=== PATIENT | male | born 1955 | race Two or more races ===

== ENCOUNTER 2017-04-11 11:19 | Inpatient (IN) | payer MEDICARE, MEDICAID ==
[~2017-04-11] VITALS: Ht 154.9 cm; Wt 78.5 kg
[~2017-04-11 11:19] MED LIST: ALLO300T2 PO; AML5T PO; ASPI81CH49 PO; CLO01T GT; COLC1TAB3 PO; ENAL-3 PO; METO25TA5 PO; SIMV-8 PO
[2017-04-11 12:15] LABS: Basophils # (auto) 0.1 uL; Lymphocytes # (auto) 2.2 uL; Monocytes # (auto) 0.7 uL; White Blood Cell 8.6 10^3/uL (4.4-10.8)
[2017-04-11 12:16] LABS: Basophils % (auto) 1.1 % (0.0-2.0); Eosinophils # (auto) 0.2 uL; Eosinophils % (auto) 2.9 % (0.0-7.0); Hematocrit 52.6 % (41.0-53.0); Lymphocytes % (auto) 25.9 % (10.0-50.0); Mean Corpuscular Hemoglobin 31.8 pg (28.0-32.0); Mean Corpuscular Hgb Conc. 34.3 g/dL (32.0-36.0); Mean Corpuscular Volume 92.7 fL (80.0-100.0); Monocytes % (auto) 8.2 % (0.0-12.0); Neutrophils # (auto) 5.3 uL; Neutrophils % (auto) 61.9 % (37.0-80.0); Nucleated Red Blood Cells % 0.2 %; Platelet Count (auto) 230 10^3/uL (140-450); Red Blood Cells 5.68 10^6/uL (4.5-5.90); Red Cell Distribution Width 14.6 % (11.8-14.3)
[2017-04-11 13:09] LABS: Albumin 3.9 g/dL (3.4-5.0); BUN/Creatinine Ratio 14.6; Bilirubin, Total 0.7 mg/dL (0.2-1.0); Calcium 8.7 mg/dL (8.5-10.1); Magnesium 2.4 mg/dL (1.6-2.6); Potassium 4.2 mmol/L (3.5-5.1); Total Protein 7.6 g/dL (6.4-8.2)
[2017-04-11 19:04] LABS: Urine Bacteria NONE SEEN /hpf (None Seen); Urine Blood Negative /uL (Negative); Urine Specific Gravity 1.017 (1.001-1.035); Urine WBC 2 /hpf (0 - 3)
[2017-04-11] MEDS ORDERED: ONDANSETRON HCL 4 MG/2 ML VIAL IV PRN (20:45)
[2017-04-11] MEDS ORDERED: ASPirin 81 mg TAB PO ONE (20:45)
[2017-04-11] MEDS ORDERED: MORPHINE SULFATE 4 MG/ML SYR/VIAL IV PRN (20:45)
[2017-04-11] MEDS ORDERED: HYDROcodone-ACET 5/325MG TAB PO PRN (20:45)
[2017-04-11] MEDS ORDERED: NITROGLYCERIN 0.4 MG SL TAB SL PRN (20:45)
[2017-04-11] MEDS ORDERED: ACETAMINOPHEN 325 MG TAB PO PRN (20:45)
[2017-04-11] MEDS ORDERED: ASPirin 81 mg TAB ONE (20:53)
[2017-04-11 21:45] VITALS: BP 153/93
[2017-04-11 22:00] VITALS: BP 153/93
[2017-04-11] MEDS: ATORVASTATIN 20 MG TAB PO SCH (22:23)
[2017-04-11] MEDS: FAMOTIDINE 20 MG TAB PO SCH (22:23)
[2017-04-11] MEDS: ENALAPRIL MALEATE 10 MG TAB PO SCH (22:23)
[2017-04-12] MEDS ORDERED: LISI-646 PO (04:48)
[2017-04-12] MEDS ORDERED: HYDR25TA35 PO (04:48)
[2017-04-12 04:57] VITALS: BP 124/91
[2017-04-12 05:57] LABS: Basophils # (auto) 0.1 uL; Eosinophils # (auto) 0.3 uL; Lymphocytes # (auto) 2.2 uL; Mean Corpuscular Volume 92.9 fL (80.0-100.0); Monocytes # (auto) 0.7 uL
[2017-04-12 05:59] LABS: Eosinophils % (auto) 3.6 % (0.0-7.0); Hematocrit 51.9 % (41.0-53.0); Hemoglobin 18.5 g/dL (13.5-17.5); Lymphocytes % (auto) 30.5 % (10.0-50.0); Mean Corpuscular Hemoglobin 33.1 pg (28.0-32.0); Mean Corpuscular Hgb Conc. 35.7 g/dL (32.0-36.0); Monocytes % (auto) 9.6 % (0.0-12.0); Neutrophils # (auto) 4.1 uL; Neutrophils % (auto) 55.3 % (37.0-80.0); Nucleated Red Blood Cells % 0.6 %; Platelet Count (auto) 209 10^3/uL (140-450); Red Blood Cells 5.58 10^6/uL (4.5-5.90); White Blood Cell 7.4 10^3/uL (4.4-10.8)
[2017-04-12 06:20] LABS: Potassium 4.2 mmol/L (3.5-5.1)
[2017-04-12 06:26] LABS: Albumin 3.7 g/dL (3.4-5.0); BUN/Creatinine Ratio 18.6
[2017-04-12 06:32] LABS: Bilirubin, Total 0.8 mg/dL (0.2-1.0); Total Protein 7.1 g/dL (6.4-8.2)
[2017-04-12] MEDS ORDERED: PNEUMOCOCCAL VACC POLYS 25 MCG/0.5 ML VIAL IM ONE (07:30)
[2017-04-12] MEDS ORDERED: INFLUENZA QUAD 2017-2018 0.5 ML SYRG IM ONE (07:30)
[2017-04-12 08:30] VITALS: BP 148/93
[2017-04-12] MEDS ORDERED: METOPROLOL SUCCINATE XL 50 MG TAB PO SCH (10:00)
[2017-04-12] MEDS: ENALAPRIL MALEATE 10 MG TAB PO SCH ×2 (10:25→23:05)
[2017-04-12] MEDS: ENOXAPARIN SOD 40 MG/0.4 ML SYRINGE SC SCH (10:26)
[2017-04-12] MEDS: amLODIPine BESYLATE 5 MG TAB PO SCH (10:26)
[2017-04-12] MEDS: ALLOPURINOL 300 MG TAB PO SCH (10:26)
[2017-04-12] MEDS: cloNIDine HCL 0.1 MG TAB PO SCH (10:26)
[2017-04-12] MEDS: FAMOTIDINE 20 MG TAB PO SCH ×2 (10:26→23:06)
[2017-04-12] MEDS: ASPirin 81 mg TAB PO SCH (10:27)
[2017-04-12] MEDS: COLCHICINE 0.6 MG TAB PO SCH (10:27)
[2017-04-12 13:00] VITALS: BP 126/92
[2017-04-12 17:07] VITALS: BP 121/79
[2017-04-12] MEDS: ATORVASTATIN 20 MG TAB PO SCH (23:06)
[2017-04-12 23:51] VITALS: BP 147/93
[2017-04-13 00:03] VITALS: BP 147/93
[2017-04-13 05:17] VITALS: BP 140/85
[2017-04-13] MEDS ORDERED: ADENOSINE 66 MG in GIVE UN-DILUTED 0 ML IV ONE (08:30)
[2017-04-13 08:51] VITALS: BP 178/104
[2017-04-13 09:07] VITALS: BP 150/91
[2017-04-13] MEDS ORDERED: METOPROLOL SUCCINATE XL 50 MG TAB PO SCH (10:00)
[2017-04-13] MEDS: ENOXAPARIN SOD 40 MG/0.4 ML SYRINGE SC SCH (10:00)
[2017-04-13] MEDS: FAMOTIDINE 20 MG TAB PO SCH (10:44)
[2017-04-13] MEDS: ALLOPURINOL 300 MG TAB PO SCH (10:44)
[2017-04-13] MEDS: ASPirin 81 mg TAB PO SCH (10:44)
[2017-04-13] MEDS: COLCHICINE 0.6 MG TAB PO SCH (10:45)
[2017-04-13] MEDS: ENALAPRIL MALEATE 10 MG TAB PO SCH (10:46)
[2017-04-13] MEDS: cloNIDine HCL 0.1 MG TAB PO SCH (10:46)
[2017-04-13] MEDS: amLODIPine BESYLATE 5 MG TAB PO SCH (10:48)
[2017-04-13 13:00] VITALS: BP 140/91
[2017-04-13 16:14] VITALS: BP 140/91
== END 2017-04-13 17:32 | disposition home or self-care (01) | DRG 282 ==
LOC: ER 11:19 → TELE 11:20 → TELE-CENTR 21:37
PROVIDERS: ADMIT Nurse Practitioner; ATTEND Internal Medicine
DX: I21.4 Non-ST elevation (NSTEMI) myocardial infarction (principal); I11.9 Hypertensive heart disease without heart failure; N18.3 Chronic kidney disease, stage 3 (moderate); B95.62 Methicillin resistant Staphylococcus aureus infection as the cause of diseases classified elsewhere; I25.10 Atherosclerotic heart disease of native coronary artery without angina pectoris; E78.00 Pure hypercholesterolemia, unspecified; E78.5 Hyperlipidemia, unspecified; I25.5 Ischemic cardiomyopathy; M10.9 Gout, unspecified; R00.2 Palpitations; Z95.1 Presence of aortocoronary bypass graft; Z23 Encounter for immunization; Z87.891 Personal history of nicotine dependence; Z79.899 Other long term (current) drug therapy; Z79.82 Long term (current) use of aspirin
CPT/HCPCS: 36415; 70450; 71046; 78452; 80053; 81001; 83735; 83880; 84443; 84484; 85025; 87081; 93005; 93017; 93306; 96372; J0153

== ENCOUNTER 2017-07-20 03:40 | Emergency (ER) | payer MEDICARE, MEDICAID ==
[~2017-07-20] VITALS: Ht 167.6 cm; Wt 79.4 kg
[~2017-07-20 03:40] MED LIST changes: +HYDR25TA35 PO; +LISI-646 PO
[2017-07-20 04:39] LABS: Urine WBC None Seen /hpf (0 - 3)
[2017-07-20 04:51] LABS: Urine Bacteria NONE SEEN /hpf (None Seen); Urine Blood Negative /uL (Negative); Urine Specific Gravity 1.012 (1.001-1.035)
[2017-07-20 06:52] LABS: Basophils # (auto) 0.1 uL; Eosinophils # (auto) 0.2 uL; Eosinophils % (auto) 2.4 % (0.0-7.0); Hematocrit 49.2 % (41.0-53.0); Hemoglobin 17.4 g/dL (13.5-17.5); Lymphocytes # (auto) 1.8 uL; Lymphocytes % (auto) 22.9 % (10.0-50.0); Mean Corpuscular Hemoglobin 32.7 pg (28.0-32.0); Mean Corpuscular Hgb Conc. 35.3 g/dL (32.0-36.0); Mean Corpuscular Volume 92.7 fL (80.0-100.0); Monocytes # (auto) 0.7 uL; Monocytes % (auto) 8.6 % (0.0-12.0); Neutrophils # (auto) 5.2 uL; Neutrophils % (auto) 65.1 % (37.0-80.0); Nucleated Red Blood Cells % 0.1 %; Platelet Count (auto) 226 10^3/uL (140-450); Red Blood Cells 5.31 10^6/uL (4.5-5.90)
[2017-07-20 07:05] LABS: INR 0.98 (0.9-1.15); Partial Thromboplastin Time 26.6 sec (22.64-33.71); Prothrombin Time 10.7 sec (9.37-12.3)
[2017-07-20 07:09] LABS: Albumin 4.1 g/dL (3.4-5.0); BUN/Creatinine Ratio 15.7; Magnesium 2.3 mg/dL (1.6-2.6); Potassium 4.1 mmol/L (3.5-5.1)
[2017-07-20 07:40] LABS: Total Protein 7.8 g/dL (6.4-8.2)
[2017-07-20] MEDS ORDERED: SODIUM CHLORIDE 0.9% 1,000 ML IV ONE (08:30)
[2017-07-20] MEDS ORDERED: KETOROLAC TROMETH 30 MG/ML 1ML VIAL IV ONE (08:30)
[2017-07-20 10:00] VITALS: BP 146/90
== END 2017-07-20 10:21 | disposition home or self-care (01) ==
LOC: ER 03:53
DX: R10.9 Unspecified abdominal pain (principal); I25.2 Old myocardial infarction; I10 Essential (primary) hypertension; E78.5 Hyperlipidemia, unspecified; Z95.1 Presence of aortocoronary bypass graft
CPT/HCPCS: 36415; 71046; 74176; 80053; 81001; 82150; 83690; 83735; 84484; 85025; 85610; 85730; 93005; 99285; J1885; J7030

== ENCOUNTER 2018-05-06 15:57 | Inpatient (IN) | payer MEDICARE, MEDICAID ==
[~2018-05-06] VITALS: Ht 154.9 cm; Wt 75.3 kg
[~2018-05-06 15:57] MED LIST changes: +HYDR-4296 PO; -HYDR25TA35 PO
[2018-05-06 16:52] LABS: Basophils # (auto) 0.1 uL; Basophils % (auto) 0.9 % (0.0-2.0); Eosinophils # (auto) 0.3 uL; Eosinophils % (auto) 3.9 % (0.0-7.0); Hematocrit 45.4 % (41.0-53.0); Hemoglobin 15.3 g/dL (13.5-17.5); Lymphocytes # (auto) 2.5 uL; Lymphocytes % (auto) 29.2 % (10.0-50.0); Mean Corpuscular Hemoglobin 31.1 pg (28.0-32.0); Mean Corpuscular Hgb Conc. 33.7 g/dL (32.0-36.0); Mean Corpuscular Volume 92.2 fL (80.0-100.0); Monocytes # (auto) 0.7 uL; Monocytes % (auto) 7.8 % (0.0-12.0); Neutrophils # (auto) 4.9 uL; Neutrophils % (auto) 58.2 % (37.0-80.0); Nucleated Red Blood Cells % 0.2 %; Platelet Count (auto) 285 10^3/uL (140-450); Red Blood Cells 4.92 10^6/uL (4.5-5.90); Red Cell Distribution Width 14.3 % (11.8-14.3); White Blood Cell 8.4 10^3/uL (4.4-10.8)
[2018-05-06 17:05] LABS: Alanine Aminotransferase 30 U/L (16-61); Albumin 3.9 g/dL (3.4-5.0); Anion Gap 12 (5-15); Aspartate Aminotransferase 21 U/L (15-37); BUN/Creatinine Ratio 12.2; Blood Urea Nitrogen 17 mg/dL (7-18); Calcium 8.7 mg/dL (8.5-10.1); Carbon Dioxide 22 mmol/L (21-32); Chloride 108 mmol/L (98-107); GFR African American 67 mL/min; GFR Non-African American 55 mL/min; Glucose 95 mg/dL (74-106); Potassium 3.7 mmol/L (3.5-5.1); Sodium 142 mmol/L (136-145)
[2018-05-06 17:08] LABS: Alkaline Phosphatase 96 U/L (45-117); Bilirubin, Total 0.6 mg/dL (0.2-1.0); Total Protein 7.5 g/dL (6.4-8.2)
[2018-05-06] MEDS ORDERED: ACETAMINOPHEN 500 MG TAB PO PRN (22:15)
[2018-05-06] MEDS ORDERED: TEMAZEPAM 15 MG CAP PO PRN (22:15)
[2018-05-06] MEDS ORDERED: MORPHINE SULFATE 4 MG/ML SYR/VIAL IV PRN (22:15)
[2018-05-06] MEDS ORDERED: ONDANSETRON HCL 4 MG/2 ML VIAL IV PRN (22:15)
[2018-05-06] MEDS ORDERED: NITROGLYCERIN 0.4 MG SL TAB SL PRN (22:15)
[2018-05-07 02:44] LABS: Basophils # (auto) 0.1 uL; Eosinophils # (auto) 0.3 uL; Eosinophils % (auto) 4.5 % (0.0-7.0); Hematocrit 44.5 % (41.0-53.0); Hemoglobin 14.9 g/dL (13.5-17.5); Lymphocytes # (auto) 2.3 uL; Mean Corpuscular Hemoglobin 30.9 pg (28.0-32.0); Mean Corpuscular Hgb Conc. 33.4 g/dL (32.0-36.0); Mean Corpuscular Volume 92.5 fL (80.0-100.0); Monocytes # (auto) 0.8 uL; Monocytes % (auto) 10.6 % (0.0-12.0); Neutrophils % (auto) 52.9 % (37.0-80.0); Nucleated Red Blood Cells % 0.1 %; Platelet Count (auto) 241 10^3/uL (140-450); Red Blood Cells 4.81 10^6/uL (4.5-5.90); Red Cell Distribution Width 14.2 % (11.8-14.3); White Blood Cell 7.5 10^3/uL (4.4-10.8)
[2018-05-07 03:02] LABS: BUN/Creatinine Ratio 17.8; Calcium 8.8 mg/dL (8.5-10.1); Potassium 3.8 mmol/L (3.5-5.1)
[2018-05-07 07:39] LABS: Urine Bacteria NONE SEEN /hpf (None Seen); Urine Blood Negative /uL (Negative); Urine Sperm PRESENT /hpf (None Seen); Urine WBC 1 /hpf (0 - 3)
[2018-05-07] MEDS ORDERED: ASPirin-EC 81 mg tab PO SCH (10:00)
[2018-05-07] MEDS ORDERED: hydrALAZINE HCL 25 MG TAB PO SCH (10:00)
[2018-05-07] MEDS ORDERED: METOPROLOL TARTRATE 25 MG TAB PO SCH (10:00)
[2018-05-07 14:06] VITALS: BP 130/89
[2018-05-07] MEDS ORDERED: ATORVASTATIN 20 MG TAB PO SCH (22:00)
== END 2018-05-07 18:04 | disposition home or self-care (01) | DRG 302 ==
LOC: ER 15:59 → TELE 22:48
PROVIDERS: ADMIT Nurse Practitioner Family; ATTEND Internal Medicine
DX: I25.110 Atherosclerotic heart disease of native coronary artery with unstable angina pectoris (principal); N17.0 Acute kidney failure with tubular necrosis; I13.0 Hypertensive heart and chronic kidney disease with heart failure and stage 1 through stage 4 chronic kidney disease, or unspecified chronic kidney disease; M10.9 Gout, unspecified; I50.9 Heart failure, unspecified; N18.9 Chronic kidney disease, unspecified; D64.9 Anemia, unspecified; E66.9 Obesity, unspecified; E78.5 Hyperlipidemia, unspecified; F41.9 Anxiety disorder, unspecified; Z79.82 Long term (current) use of aspirin; Z79.899 Other long term (current) drug therapy; Z87.442 Personal history of urinary calculi; Z87.891 Personal history of nicotine dependence; Z95.1 Presence of aortocoronary bypass graft
CPT/HCPCS: 36415; 71046; 80048; 80053; 80061; 81001; 83735; 84484; 85025; 93005; 93306; 94761; G0378

== ENCOUNTER 2020-06-21 13:32 | Inpatient (IN) | payer MEDICARE, MEDICAID ==
[~2020-06-21] VITALS: Ht 154.9 cm; Wt 72.6 kg
[~2020-06-21 13:32] MED LIST changes: -ENAL-3 PO; +ENAL10TA13 PO
[2020-06-21] MEDS ORDERED: ASPirin 81 mg TAB PO ONE (13:45)
[2020-06-21 14:57] LABS: Basophils # (auto) 0.1 10 ^3/uL (0-0.2); Eosinophils # (auto) 0.3 10 ^3/uL (0-0.8); Hematocrit 46.4 % (41.0-53.0); Hemoglobin 15.6 g/dL (13.5-17.5); Lymphocytes # (auto) 2.7 10 ^3/uL (0.4-5.4); Lymphocytes % (auto) 30.8 % (10.0-50.0); Mean Corpuscular Hgb Conc. 33.7 g/dL (32.0-36.0); Monocytes # (auto) 0.8 10 ^3/uL (0-1.3); Monocytes % (auto) 9.7 % (0.0-12.0); Neutrophils # (auto) 4.8 10 ^3/uL (1.6-8.6); Neutrophils % (auto) 55.5 % (37.0-80.0); Nucleated Red Blood Cells % 0.1 %; Platelet Count (auto) 266 10^3/uL (140-450); Red Blood Cells 5.21 10^6/uL (4.5-5.90); Red Cell Distribution Width 15.6 % (11.8-14.3); White Blood Cell 8.7 10^3/uL (4.4-10.8)
[2020-06-21 15:06] LABS: Albumin 4.2 g/dL (3.4-5.0); Calcium 8.7 mg/dL (8.5-10.1); Potassium 4.1 mmol/L (3.5-5.1)
[2020-06-21 15:13] LABS: BUN/Creatinine Ratio 15.4; Bilirubin, Total 0.8 mg/dL (0.2-1.0); Total Protein 7.6 g/dL (6.4-8.2)
[2020-06-21] MEDS ORDERED: ACETAMINOPHEN 500 MG TAB PO PRN (16:45)
[2020-06-21] MEDS ORDERED: HYDROcodone-ACET 5/325MG TAB PO PRN (16:45)
[2020-06-21] MEDS ORDERED: MORPHINE SULF INJ 2 MG/ML SYRINGE 1ML IV PRN ×2 (16:45)
[2020-06-21] MEDS ORDERED: NITROGLYCERIN 0.4 MG SL TAB SL PRN (16:45)
[2020-06-21] MEDS ORDERED: ONDANSETRON HCL 4 MG/2 ML VIAL IV PRN (16:45)
[2020-06-21] MEDS ORDERED: DEXTROSE (50%) 50ML SYRG IV PRN (16:45)
[2020-06-21] MEDS: InsuLIN REG 1unit/0.01ml Soln (100units/ml) SC SCH ×2 (17:00→21:32)
[2020-06-21] MEDS: ACCU-CHEK COMFORT CURVE STRIP VI SCH ×2 (17:23→21:32)
[2020-06-21] MEDS: ATORVASTATIN 20 MG TAB PO SCH (21:32)
[2020-06-21] MEDS: SACUBITRIL-VALSARTAN 24mg/26mg TAB PO SCH (21:32)
[2020-06-21] MEDS: CARVEDILOL 3.125 MG TAB PO SCH (21:32)
[2020-06-21 22:00] VITALS: BP 132/66
[2020-06-21] MEDS ORDERED: HYDR50TA15 PO (22:00)
[2020-06-21] MEDS ORDERED: CARVEDILOL 3.125 MG TAB PO SCH (22:00)
[2020-06-21] MEDS ORDERED: MAGN64TA3 PO (22:00)
[2020-06-21] MEDS ORDERED: ATOR40TA52 PO (22:00)
[2020-06-21] MEDS ORDERED: SACU1TAB PO (22:00)
[2020-06-21 22:02] VITALS: BP 132/66
[2020-06-22 05:00] VITALS: BP 105/68
[2020-06-22] MEDS: ACCU-CHEK COMFORT CURVE STRIP VI SCH ×2 (06:16→11:30)
[2020-06-22] MEDS: InsuLIN REG 1unit/0.01ml Soln (100units/ml) SC SCH ×2 (06:17→11:30)
[2020-06-22 09:00] VITALS: BP 127/84
[2020-06-22] MEDS: CARVEDILOL 3.125 MG TAB PO SCH ×2 (09:38→21:26)
[2020-06-22] MEDS: amLODIPine BESYLATE 5 MG TAB PO SCH (09:39)
[2020-06-22] MEDS: FAMOTIDINE 20 MG TAB PO SCH (09:39)
[2020-06-22] MEDS: SACUBITRIL-VALSARTAN 24mg/26mg TAB PO SCH ×2 (09:39→21:27)
[2020-06-22] MEDS: ALLOPURINOL 300 MG TAB PO SCH (09:40)
[2020-06-22 13:02] VITALS: BP 136/80
[2020-06-22 16:57] VITALS: BP 133/83
[2020-06-22] MEDS: ATORVASTATIN 20 MG TAB PO SCH (21:27)
[2020-06-22] MEDS ORDERED: TEMAZEPAM 15 MG CAP PO ONE (22:30)
[2020-06-22 23:03] VITALS: BP 161/92
[2020-06-23 05:20] VITALS: BP 126/81
[2020-06-23 05:58] LABS: Basophils # (auto) 0.1 10 ^3/uL (0-0.2); Basophils % (auto) 0.9 % (0.0-2.0); Eosinophils # (auto) 0.2 10 ^3/uL (0-0.8); Eosinophils % (auto) 2.3 % (0.0-7.0); Hematocrit 47.9 % (41.0-53.0); Hemoglobin 15.8 g/dL (13.5-17.5); Lymphocytes % (auto) 28.6 % (10.0-50.0); Mean Corpuscular Hemoglobin 29.2 pg (28.0-32.0); Mean Corpuscular Hgb Conc. 33.1 g/dL (32.0-36.0); Mean Corpuscular Volume 88.2 fL (80.0-100.0); Monocytes # (auto) 0.7 10 ^3/uL (0-1.3); Monocytes % (auto) 10.2 % (0.0-12.0); Nucleated Red Blood Cells % 0.2 %; Platelet Count (auto) 236 10^3/uL (140-450); Red Blood Cells 5.43 10^6/uL (4.5-5.90); Red Cell Distribution Width 15.5 % (11.8-14.3); White Blood Cell 6.8 10^3/uL (4.4-10.8)
[2020-06-23 06:12] LABS: INR 1.02 (0.9-1.15); Partial Thromboplastin Time 25.9 sec (23.0-31.2)
[2020-06-23 06:21] LABS: Potassium 3.9 mmol/L (3.5-5.1)
[2020-06-23 06:33] LABS: Calcium 8.6 mg/dL (8.5-10.1); Magnesium 2.4 mg/dL (1.6-2.6)
[2020-06-23 08:52] VITALS: BP 129/77
[2020-06-23] MEDS: SACUBITRIL-VALSARTAN 24mg/26mg TAB PO SCH ×2 (09:27→22:42)
[2020-06-23] MEDS: CARVEDILOL 3.125 MG TAB PO SCH ×2 (09:27→22:43)
[2020-06-23] MEDS: amLODIPine BESYLATE 5 MG TAB PO SCH (09:27)
[2020-06-23] MEDS: ALLOPURINOL 300 MG TAB PO SCH (09:28)
[2020-06-23] MEDS: FAMOTIDINE 20 MG TAB PO SCH (09:28)
[2020-06-23 13:00] VITALS: BP 113/69
[2020-06-23] MEDS ORDERED: VANCOMYCIN 1GM/250ML 250 ML IV ONE ×2 (13:15→13:18)
[2020-06-23] MEDS ORDERED: LIDOCAINE 2%HCL (LOCAL ANESTH.) INJ 20ML MDV ONE (13:18)
[2020-06-23] MEDS ORDERED: VANCOMYCIN HCL 1000 MG VL ONE (13:18)
[2020-06-23] MEDS ORDERED: BACITRACIN INJ 50000 UNIT VIAL ONE (13:18)
[2020-06-23] MEDS ORDERED: MIDAZOLAM HCL 1MG/1ML-2 ML VIAL ONE (13:25)
[2020-06-23] MEDS ORDERED: fentaNYL CITRATE 100 MCG/2 ML VL ONE (13:25)
[2020-06-23] MEDS ORDERED: GELATIN 1 SPONGE SIZE 100 TOP ONE (14:41)
[2020-06-23 17:00] VITALS: BP 148/90
[2020-06-23 22:03] VITALS: BP 121/78
[2020-06-23] MEDS: VANCOMYCIN 1GM/250ML 250 ML IV SCH (22:30)
[2020-06-23] MEDS: ATORVASTATIN 20 MG TAB PO SCH (22:42)
[2020-06-24 05:00] VITALS: BP 127/89
[2020-06-24 06:34] LABS: Basophils # (auto) 0 10 ^3/uL (0-0.2); Basophils % (auto) 0.4 % (0.0-2.0); Eosinophils # (auto) 0.1 10 ^3/uL (0-0.8); Eosinophils % (auto) 1.1 % (0.0-7.0); Lymphocytes # (auto) 1.4 10 ^3/uL (0.4-5.4); Lymphocytes % (auto) 13.6 % (10.0-50.0); Mean Corpuscular Hemoglobin 29.5 pg (28.0-32.0); Mean Corpuscular Hgb Conc. 33.4 g/dL (32.0-36.0); Mean Corpuscular Volume 88.5 fL (80.0-100.0); Monocytes # (auto) 0.9 10 ^3/uL (0-1.3); Monocytes % (auto) 9.2 % (0.0-12.0); Neutrophils # (auto) 7.5 10 ^3/uL (1.6-8.6); Neutrophils % (auto) 75.7 % (37.0-80.0); Platelet Count (auto) 240 10^3/uL (140-450); Red Blood Cells 5.42 10^6/uL (4.5-5.90); Red Cell Distribution Width 15.7 % (11.8-14.3); White Blood Cell 9.9 10^3/uL (4.4-10.8)
[2020-06-24 08:40] VITALS: BP 143/94
[2020-06-24] MEDS: CARVEDILOL 3.125 MG TAB PO SCH (09:56)
[2020-06-24] MEDS: FAMOTIDINE 20 MG TAB PO SCH (09:56)
[2020-06-24] MEDS: amLODIPine BESYLATE 5 MG TAB PO SCH (09:57)
[2020-06-24] MEDS: ALLOPURINOL 300 MG TAB PO SCH (09:57)
[2020-06-24] MEDS: VANCOMYCIN 1GM/250ML 250 ML IV SCH (10:01)
[2020-06-24] MEDS: SACUBITRIL-VALSARTAN 24mg/26mg TAB PO SCH (10:02)
[2020-06-24] MEDS ORDERED: DOXY-286 PO ×2 (11:50→11:58)
[2020-06-24 12:12] VITALS: BP 143/94
[2020-06-24 12:45] VITALS: BP 118/81
== END 2020-06-24 13:27 | disposition home health service (06) | DRG 243 ==
LOC: ER 13:32 → TELE 16:44 → TELE-WESTW 20:24
PROVIDERS: ADMIT Nurse Practitioner Acute Care; ATTEND Internal Medicine
PROC: 0JH606Z Insertion of Pacemaker, Dual Chamber into Chest Subcutaneous Tissue and Fascia, Open Approach (ICD-10-PCS; principal; 2020-06-23)
PROC: 02HK3JZ Insertion of Pacemaker Lead into Right Ventricle, Percutaneous Approach (ICD-10-PCS; 2020-06-23)
PROC: 02H63JZ Insertion of Pacemaker Lead into Right Atrium, Percutaneous Approach (ICD-10-PCS; 2020-06-23)
PROC: B5171ZZ Fluoroscopy of Left Subclavian Vein using Low Osmolar Contrast (ICD-10-PCS; 2020-06-23)
DX: I44.2 Atrioventricular block, complete (principal); I50.22 Chronic systolic (congestive) heart failure; I24.9 Acute ischemic heart disease, unspecified; I49.3 Ventricular premature depolarization; I25.10 Atherosclerotic heart disease of native coronary artery without angina pectoris; E66.9 Obesity, unspecified; E78.5 Hyperlipidemia, unspecified; Z20.822 Contact with and (suspected) exposure to COVID-19; E11.9 Type 2 diabetes mellitus without complications; I11.0 Hypertensive heart disease with heart failure; M10.9 Gout, unspecified; Z79.82 Long term (current) use of aspirin; Z79.84 Long term (current) use of oral hypoglycemic drugs; Z79.899 Other long term (current) drug therapy; Z95.1 Presence of aortocoronary bypass graft; Z87.442 Personal history of urinary calculi; Z87.891 Personal history of nicotine dependence; I25.2 Old myocardial infarction; Z68.30 Body mass index [BMI] 30.0-30.9, adult
CPT/HCPCS: 36415; 71045; 71250; 80048; 80053; 80061; 82306; 82962; 83036; 83735; 83880; 84132; 84443; 84484; 85025; 85610; 85730; 86850; 86900; 86901; 87426; 93005; 93306; 99152; 99153; C1785; G0378; J2250

== ENCOUNTER 2022-05-26 09:13 | Emergency (ER) | payer MEDICARE, MEDICAID ==
[~2022-05-26] VITALS: Ht 152.4 cm; Wt 70.9 kg
[~2022-05-26 09:13] MED LIST changes: +ATOR40TA52 PO; +DOXY-286 PO; +HYDR50TA15 PO; -LISI-646 PO; +LISI20TA28 PO; +MAGN64TA3 PO; +SACU1TAB PO
[2022-05-26 09:48] VITALS: BP 164/94
[2022-05-26 10:23] LABS: Albumin 3.9 g/dL (3.4-5.0); Calcium 8.9 mg/dL (8.5-10.1); Potassium 4.4 mmol/L (3.5-5.1)
[2022-05-26 10:29] LABS: BUN/Creatinine Ratio 17.6 (10.0-20.0); Bilirubin, Total 0.9 mg/dL (0.2-1.0); Total Protein 6.8 g/dL (6.4-8.2)
[2022-05-26 10:30] LABS: Basophils # (auto) 0.1 10 ^3/uL (0-0.2); Basophils % (auto) 1.1 % (0.0-2.0); Eosinophils # (auto) 0.3 10 ^3/uL (0-0.8); Eosinophils % (auto) 4.2 % (0.0-7.0); Hematocrit 43.9 % (41.0-53.0); Hemoglobin 14.8 g/dL (13.5-17.5); Lymphocytes # (auto) 1.5 10 ^3/uL (0.4-5.4); Lymphocytes % (auto) 21.4 % (10.0-50.0); Mean Corpuscular Hgb Conc. 33.7 g/dL (32.0-36.0); Mean Corpuscular Volume 91.8 fL (80.0-100.0); Monocytes # (auto) 0.9 10 ^3/uL (0-1.3); Monocytes % (auto) 12.1 % (0.0-12.0); Neutrophils # (auto) 4.3 10 ^3/uL (1.6-8.6); Neutrophils % (auto) 61.2 % (37.0-80.0); Nucleated Red Blood Cells % 0.3 %; Red Blood Cells 4.78 10^6/uL (4.5-5.90); Red Cell Distribution Width 13.7 % (11.8-14.3); White Blood Cell 7.1 10^3/uL (4.4-10.8)
[2022-05-26 10:31] LABS: Alcohol, Urine < 3.0 mg/dL (0-10); Amphetamine Screen, Urine POSITIVE (NEGATIVE); Barbiturate Scree,Urine NEGATIVE (NEGATIVE); Benzodiazephine Screen, Urine NEGATIVE (NEGATIVE); Cannabinoid Screen, Urine NEGATIVE (NEGATIVE); Cocaine Screen, Urine NEGATIVE (NEGATIVE); Opiate Scree,Urine NEGATIVE (NEGATIVE); Phencyclidine Screen, Urine NEGATIVE (NEGATIVE)
[2022-05-27] MEDS ORDERED: ALPR0.5T GT (21:19)
== END 2022-05-26 11:24 | disposition home or self-care (01) ==
LOC: ER 09:13
DX: F41.8 Other specified anxiety disorders (principal); F15.10 Other stimulant abuse, uncomplicated; I11.0 Hypertensive heart disease with heart failure; I50.9 Heart failure, unspecified; I25.10 Atherosclerotic heart disease of native coronary artery without angina pectoris; E78.5 Hyperlipidemia, unspecified; Z86.2 Personal history of diseases of the blood and blood-forming organs and certain disorders involving the immune mechanism; Z95.1 Presence of aortocoronary bypass graft; Z95.0 Presence of cardiac pacemaker; Z87.891 Personal history of nicotine dependence; Z79.82 Long term (current) use of aspirin; Z79.899 Other long term (current) drug therapy; Z79.2 Long term (current) use of antibiotics
CPT/HCPCS: 36415; 80053; 80307; 84484; 85025

== ENCOUNTER 2022-05-27 15:24 | Emergency (ER) | payer MEDICARE, MEDICAID ==
[~2022-05-27] VITALS: Ht 154.9 cm; Wt 71.7 kg
[2022-05-27] MEDS ORDERED: ALPRAZolam 0.25 MG TAB PO ONE (16:45)
[2022-05-27] MEDS ORDERED: ALPR0.5T GT (21:19)
[2022-05-27 21:33] VITALS: BP 168/56
== END 2022-05-27 21:34 | disposition home or self-care (01) ==
LOC: ER 15:24
DX: F41.1 Generalized anxiety disorder (principal); R07.9 Chest pain, unspecified; I11.0 Hypertensive heart disease with heart failure; I50.9 Heart failure, unspecified; E78.5 Hyperlipidemia, unspecified; Z87.891 Personal history of nicotine dependence; Z87.442 Personal history of urinary calculi
CPT/HCPCS: 93005

== ENCOUNTER 2023-04-10 11:11 | Inpatient (IN) | payer MEDICARE, MEDICAID ==
[~2023-04-10] VITALS: Ht 152.4 cm; Wt 66.4 kg
[~2023-04-10 11:11] MED LIST changes: +ALPR0.5T GT; +DICL50TA2 PO; -ENAL10TA13 PO; +ENAL1TAB47 PO; +HYDR-4297 PO; -HYDR50TA15 PO; -LISI20TA28 PO; +LISI20TA56 PO; +OLME1TAB73 PO; -SIMV-8 PO; +SIMV20TA20 PO
[2023-04-10 11:34] LABS: Basophils # (auto) 0.1 10 ^3/uL (0-0.2); Basophils % (auto) 0.7 % (0.0-2.0); Eosinophils # (auto) 0.2 10 ^3/uL (0-0.8); Eosinophils % (auto) 1.3 % (0.0-7.0); Hematocrit 49.4 % (41.0-53.0); Hemoglobin 16.3 g/dL (13.5-17.5); Lymphocytes # (auto) 1.6 10 ^3/uL (0.4-5.4); Lymphocytes % (auto) 12.6 % (10.0-50.0); Mean Corpuscular Hemoglobin 30.9 pg (28.0-32.0); Mean Corpuscular Hgb Conc. 33.1 g/dL (32.0-36.0); Mean Corpuscular Volume 93.3 fL (80.0-100.0); Monocytes # (auto) 1.1 10 ^3/uL (0-1.3); Monocytes % (auto) 8.2 % (0.0-12.0); Neutrophils % (auto) 77.2 % (37.0-80.0); Nucleated Red Blood Cells % 0.1 %; Red Blood Cells 5.29 10^6/uL (4.5-5.90); Red Cell Distribution Width 15.5 % (11.8-14.3); White Blood Cell 12.9 10^3/uL (4.4-10.8)
[2023-04-10 12:09] LABS: Alanine Aminotransferase 20 U/L (7-40); Albumin 4.9 g/dL (3.2-4.8); Alkaline Phosphatase 89 U/L (46-116); Anion Gap 7 (5-15); Aspartate Aminotransferase 19 U/L (13-40); BUN/Creatinine Ratio 16.7 (10.0-20.0); Bilirubin, Total 1.2 mg/dL (0.2-1.0); Blood Urea Nitrogen 21 mg/dL (9-23); Calcium 9.9 mg/dL (8.7-10.4); Carbon Dioxide 28 mmol/L (20-30); Chloride 104 mmol/L (98-107); Glucose 116 mg/dL (74-106); Potassium 4.1 mmol/L (3.5-5.1); Sodium 139 mmol/L (136-145)
[2023-04-10 12:10] LABS: Total Protein 7.4 g/dL (5.7-8.2)
[2023-04-10 12:12] LABS: Urine Bacteria NONE SEEN /hpf (None Seen); Urine Blood Negative /uL (Negative); Urine Clarity Clear (Clear); Urine Color Yellow (Yellow); Urine Mucus FEW (None Seen); Urine Protein, UAD 1+ (Negative); Urine Specific Gravity 1.025 (1.001-1.035); Urine WBC 2 /hpf (0 - 3); Urine pH 5.5 (5.0-8.0)
[2023-04-10] MEDS ORDERED: MORPHINE SULFATE INJ 2 MG/ml SYRG IV PRN ×2 (15:00)
[2023-04-10] MEDS ORDERED: METOCLOPRAMIDE HCL 5MG/ml INJ 2ml VIAL IV PRN (15:00)
[2023-04-10] MEDS ORDERED: LORazepam 0.5 MG TAB PO PRN (15:00)
[2023-04-10] MEDS ORDERED: NITROGLYCERIN 0.4 MG SL TAB SL PRN (15:00)
[2023-04-10] MEDS: cefTRIAXone 1GM/50ML D5W 50 ML IV ONE (16:17)
[2023-04-10] MEDS: AZITHROMYCIN 500MG/ 250ML 250 ML IV ONE (16:46)
[2023-04-10] MEDS ORDERED: DEXTROSE (50%) 50ML SYRG IV PRN (21:15)
[2023-04-10] MEDS: ACCU-CHEK COMFORT CURVE STRIP VI SCH (22:00)
[2023-04-10] MEDS: InsuLIN REG 1unit/0.01ml Soln (100units/ml) SC SCH (22:00)
[2023-04-10 22:30] LABS: Amphetamine Screen, Urine Neg (NEGATIVE); Barbiturate Scree,Urine Neg (NEGATIVE); Benzodiazephine Screen, Urine Neg (NEGATIVE); Cannabinoid Screen, Urine Neg (NEGATIVE); Cocaine Screen, Urine Neg (NEGATIVE); Opiate Scree,Urine Neg (NEGATIVE); Phencyclidine Screen, Urine Neg (NEGATIVE)
[2023-04-10] MEDS: ATORVASTATIN 20 MG TAB PO SCH (23:36)
[2023-04-10] MEDS: SACUBITRIL-VALSARTAN 24mg/26mg TAB PO SCH (23:36)
[2023-04-11] VITALS (9 sets, daily range): BP systolic 124–144; BP diastolic 72–86; PULSE 57–74; RESP 16–18; TEMP 97.9–98.4; O2SAT 97–99
[2023-04-11] MEDS ORDERED: ATOR40TA52 PO (00:34)
[2023-04-11] MEDS ORDERED: MET50T PO (00:35)
[2023-04-11] MEDS ORDERED: METF-370 PO (00:36)
[2023-04-11] MEDS ORDERED: SACU1TAB7 PO (00:36)
[2023-04-11] MEDS ORDERED: FINA5TAB4 PO (00:37)
[2023-04-11] MEDS ORDERED: ALL100T PO (00:38)
[2023-04-11 05:25] LABS: Basophils # (auto) 0.1 10 ^3/uL (0-0.2); Eosinophils # (auto) 0.2 10 ^3/uL (0-0.8); Eosinophils % (auto) 2.5 % (0.0-7.0); Hemoglobin 14.8 g/dL (13.5-17.5); Lymphocytes # (auto) 2.3 10 ^3/uL (0.4-5.4); Lymphocytes % (auto) 29.2 % (10.0-50.0); Mean Corpuscular Hemoglobin 30.6 pg (28.0-32.0); Mean Corpuscular Hgb Conc. 32.8 g/dL (32.0-36.0); Mean Corpuscular Volume 93.2 fL (80.0-100.0); Monocytes # (auto) 0.7 10 ^3/uL (0-1.3); Monocytes % (auto) 8.5 % (0.0-12.0); Neutrophils # (auto) 4.7 10 ^3/uL (1.6-8.6); Neutrophils % (auto) 58.8 % (37.0-80.0); Red Blood Cells 4.83 10^6/uL (4.5-5.90)
[2023-04-11 05:46] LABS: INR 1.04 (0.9-1.15); Partial Thromboplastin Time 26.2 SEC (24.5-34.5); Prothrombin Time 10.9 sec (9.3-11.8)
[2023-04-11 05:47] LABS: Alanine Aminotransferase 13 U/L (7-40); Albumin 4.2 g/dL (3.2-4.8); Alkaline Phosphatase 72 U/L (46-116); Anion Gap 7 (5-15); Aspartate Aminotransferase 21 U/L (13-40); BUN/Creatinine Ratio 9.4 (10.0-20.0); Blood Urea Nitrogen 10 mg/dL (9-23); CRP High Sensitivity 0.09 mg/dL (<1.0); Calcium 9.4 mg/dL (8.5-10.1); Carbon Dioxide 24 mmol/L (20-30); Chloride 106 mmol/L (98-107); Glucose 97 mg/dL (74-106); LDL Cholesterol 48 mg/dL (< 100); Potassium 4.7 mmol/L (3.5-5.1); Sodium 137 mmol/L (136-145); Triglycerides 85 mg/dL (< 150)
[2023-04-11 05:48] LABS: Bilirubin, Total 1.1 mg/dL (0.2-1.0); Cholesterol 103 mg/dL (< 200); HDL Cholesterol 42 mg/dL (40-59); Total Protein 6.5 g/dL (5.7-8.2)
[2023-04-11] MEDS: InsuLIN REG 1unit/0.01ml Soln (100units/ml) SC SCH ×2 (06:15→17:00)
[2023-04-11 08:04] LABS: Lipase 77 U/L (12-53)
[2023-04-11] MEDS: FINASTERIDE 5 MG TAB PO SCH (09:21)
[2023-04-11] MEDS: ASPirin 81 mg TAB PO SCH (09:21)
[2023-04-11] MEDS: CYANOCOBALAMIN 500 MCG TAB PO SCH (09:21)
[2023-04-11] MEDS: ENOXAPARIN SOD 40 MG/0.4 ML SYRINGE SC SCH (09:22)
[2023-04-11] MEDS: ERGOCALCIFEROL 50,000 UNIT(1.25MG) CAP PO SCH (12:43)
[2023-04-11] MEDS ORDERED: DEXTROSE (50%) 50ML SYRG IV PRN (14:15)
[2023-04-11] MEDS: ACCU-CHEK COMFORT CURVE STRIP VI SCH (18:04)
[2023-04-12 05:00] VITALS: BP 133/84; PULSE 70; RESP 17; TEMP 98.2; O2SAT 100
[2023-04-12 07:37] LABS: Anion Gap 6 (5-15); Carbon Dioxide 25 mmol/L (20-30); Chloride 108 mmol/L (98-107); Potassium 4.5 mmol/L (3.5-5.1); Sodium 139 mmol/L (136-145)
[2023-04-12 07:38] LABS: Calcium 9.1 mg/dL (8.7-10.4)
[2023-04-12 07:43] LABS: BUN/Creatinine Ratio 9.1 (10.0-20.0); Basophils # (auto) 0.1 10 ^3/uL (0-0.2); Basophils % (auto) 0.9 % (0.0-2.0); Blood Urea Nitrogen 10 mg/dL (9-23); Eosinophils # (auto) 0.2 10 ^3/uL (0-0.8); Eosinophils % (auto) 3.5 % (0.0-7.0); Glucose 96 mg/dL (74-106); Hematocrit 45.6 % (41.0-53.0); Lymphocytes # (auto) 1.9 10 ^3/uL (0.4-5.4); Lymphocytes % (auto) 28.9 % (10.0-50.0); Mean Corpuscular Hemoglobin 30.8 pg (28.0-32.0); Mean Corpuscular Hgb Conc. 32.9 g/dL (32.0-36.0); Mean Corpuscular Volume 93.5 fL (80.0-100.0); Monocytes # (auto) 0.6 10 ^3/uL (0-1.3); Monocytes % (auto) 9.7 % (0.0-12.0); Neutrophils # (auto) 3.7 10 ^3/uL (1.6-8.6); Nucleated Red Blood Cells % 0.1 %; Red Blood Cells 4.88 10^6/uL (4.5-5.90); Red Cell Distribution Width 14.7 % (11.8-14.3); White Blood Cell 6.6 10^3/uL (4.4-10.8)
[2023-04-12] MEDS ORDERED: ERGO1CAP23 PO (07:54)
[2023-04-12 08:00] VITALS: PULSE 77; O2SAT 100
[2023-04-12 09:00] VITALS: BP 122/82; PULSE 68; RESP 18; TEMP 98.2; O2SAT 100
[2023-04-12 13:00] VITALS: BP 148/83; PULSE 67; RESP 18; TEMP 98.1; O2SAT 95
== END 2023-04-12 15:45 | disposition home or self-care (01) | DRG 309 ==
LOC: ER 11:11 → TELE 15:02 → TELE-WESTW 15:02
PROVIDERS: ADMIT Internal Medicine; ATTEND Internal Medicine
PROC: 4B02XSZ Measurement of Cardiac Pacemaker, External Approach (ICD-10-PCS; principal; 2023-04-12)
DX: I49.9 Cardiac arrhythmia, unspecified (principal); I50.32 Chronic diastolic (congestive) heart failure; R55 Syncope and collapse; R00.2 Palpitations; I25.10 Atherosclerotic heart disease of native coronary artery without angina pectoris; I11.0 Hypertensive heart disease with heart failure; E11.9 Type 2 diabetes mellitus without complications; N40.0 Benign prostatic hyperplasia without lower urinary tract symptoms; F41.9 Anxiety disorder, unspecified; E78.5 Hyperlipidemia, unspecified; Z79.82 Long term (current) use of aspirin; Z95.1 Presence of aortocoronary bypass graft; Z79.84 Long term (current) use of oral hypoglycemic drugs; Z79.899 Other long term (current) drug therapy; Z87.442 Personal history of urinary calculi; Z87.891 Personal history of nicotine dependence; Z95.0 Presence of cardiac pacemaker
CPT/HCPCS: 36415; 71045; 71046; 80048; 80053; 80061; 80307; 81001; 82306; 82607; 82962; 83036; 83605; 83690; 83735; 84443; 84484; 85025; 85610; 85730; 86141; 87040; 87081; 87086; 93005; 93306; G0378

== ENCOUNTER 2023-05-26 17:55 | Emergency (ER) | payer MEDICARE, MEDICAID ==
[~2023-05-26] VITALS: Ht 154.9 cm; Wt 70.5 kg
[~2023-05-26 17:55] MED LIST changes: +ALL100T PO; -CLO01T GT; -COLC1TAB3 PO; -DICL50TA2 PO; -DOXY-286 PO; -ENAL1TAB47 PO; +ERGO1CAP23 PO; +FINA5TAB4 PO; -HYDR-4296 PO; -HYDR-4297 PO; -LISI20TA56 PO; -MAGN64TA3 PO; +METF-370 PO; -OLME1TAB73 PO; -SIMV20TA20 PO
[2023-05-26 19:44] VITALS: BP 180/100; PULSE 75; RESP 18; TEMP 98.8; O2SAT 97
[2023-05-26] MEDS ORDERED: MUPI2OIN2 EX (21:22)
[2023-05-26] MEDS ORDERED: AUG875T PO (21:22)
[2023-05-26] MEDS: NEOMYCIN-BACITRACIN-POLYM UNITDOSE PKG TOP OINT TOP ONE (21:39)
[2023-05-26] MEDS: IBUPROFEN 400 MG TAB PO ONE (21:39)
[2023-05-26] MEDS: AMOXICILLIN/CLAVUL 875 MG TAB PO ONE (21:40)
[2023-05-26] MEDS: TETANUS-DIPTH-ACEL PERTUSSIS 0.5ML SYR Tdap IM ONE (21:41)
== END 2023-05-26 22:00 | disposition home or self-care (01) ==
LOC: ER 17:55
DX: S51.811A Laceration without foreign body of right forearm, initial encounter (principal); S61.411A Laceration without foreign body of right hand, initial encounter; I11.0 Hypertensive heart disease with heart failure; I50.9 Heart failure, unspecified; I25.10 Atherosclerotic heart disease of native coronary artery without angina pectoris; F41.9 Anxiety disorder, unspecified; E78.5 Hyperlipidemia, unspecified; Z87.442 Personal history of urinary calculi; Z95.0 Presence of cardiac pacemaker; W54.0XXA Bitten by dog, initial encounter; Y93.89 Activity, other specified; Y92.89 Other specified places as the place of occurrence of the external cause; Y99.8 Other external cause status
CPT/HCPCS: 12005; 73090; 73130; 90471; 90715; 96372